=== PATIENT | female | born 1985 | race Caucasian/White ===

== ENCOUNTER 2016-10-03 05:54 | Day surgery (SDC) | payer OTHER ==
[~2016-10-03] VITALS: Ht 157.5 cm; Wt 88.5 kg
[~2016-10-03 05:54] MED LIST: FLEXERIL10 MG PO; MOBIC7.5 MG PO; NAPROSYN500 MG PO; NOHOMEMEDS; NORCO 5/3251 TABLET PO; PRILOSEC10 MG PO; TRAMADOL HCL50 MG PO
[2016-10-03 06:35] VITALS: BP 137/60
[2016-10-03 11:03] VITALS: BP 118/66
[2016-10-03 11:18] LABS: INTERNAL CONTROL VALID? YES
[2016-10-03 13:30] VITALS: BP 125/67
== END 2016-10-03 13:30 | disposition home or self-care (01) ==
LOC: SDC 05:54
PROVIDERS: Neurological Surgery
PROC: 00NY0ZZ Release Lumbar Spinal Cord, Open Approach (ICD-10-PCS; principal; 2016-10-03)
DX: M51.17 Intervertebral disc disorders with radiculopathy, lumbosacral region (principal); M51.06 Intervertebral disc disorders with myelopathy, lumbar region; Z91.040 Latex allergy status; Z68.34 Body mass index [BMI] 34.0-34.9, adult
CPT/HCPCS: 72020; 76000; 84703; J0131; J0330; J0690; J1100; J1170; J1885; J2250; J2405; J3010; S0020

== ENCOUNTER 2016-12-21 19:45 | Emergency (ER) | payer OTHER ==
[~2016-12-21] VITALS: Ht 157.5 cm; Wt 87.6 kg
[2016-12-21 23:45] VITALS: BP 126/89
== END 2016-12-21 23:44 | disposition home or self-care (01) ==
LOC: EXP 19:45 → EME 19:45 → EXP 23:44
DX: S06.0X0A Concussion without loss of consciousness, initial encounter (principal); R51 Headache; W10.9XXA Fall (on) (from) unspecified stairs and steps, initial encounter; Z91.040 Latex allergy status
CPT/HCPCS: 70450; 72125; 99281; 99284

== ENCOUNTER 2017-04-12 13:38 | Emergency (ER) | payer OTHER ==
[~2017-04-12] VITALS: Ht 157.5 cm; Wt 92.8 kg
[2017-04-12] MEDS ORDERED: NAPROSYN500 MG PO (15:44)
[2017-04-12] MEDS ORDERED: FLEXERIL10 MG PO (15:44)
[2017-04-12] MEDS ORDERED: LIDODERM 5% P1 PATCH TD (15:44)
[2017-04-12 16:01] VITALS: BP 142/92
== END 2017-04-12 16:01 | disposition home or self-care (01) ==
LOC: EME 13:38
DX: M54.41 Lumbago with sciatica, right side (principal); Z91.040 Latex allergy status
CPT/HCPCS: 72100; 99281; 99283

== ENCOUNTER 2017-07-19 11:03 | Emergency (ER) | payer OTHER ==
[~2017-07-19] VITALS: Ht 157.5 cm; Wt 94.6 kg
[~2017-07-19 11:03] MED LIST changes: +LIDODERM 5% P1 PATCH TD
[2017-07-19] MEDS ORDERED: TRAZODONE HCL50 MG PO (12:04)
[2017-07-19] MEDS ORDERED: STRATTERA40 MG PO (12:04)
[2017-07-19] MEDS ORDERED: IBUPROFEN800 MG PO (12:04)
[2017-07-19] MEDS ORDERED: MOTRIN800 MG PO (14:02)
[2017-07-19] MEDS ORDERED: FLEXERIL10 MG PO (14:02)
[2017-07-19 14:20] VITALS: BP 120/78
== END 2017-07-19 14:23 | disposition home or self-care (01) ==
LOC: EME 11:03
DX: S80.12XA Contusion of left lower leg, initial encounter (principal); M62.838 Other muscle spasm; M79.605 Pain in left leg; X58.XXXA Exposure to other specified factors, initial encounter; Z91.040 Latex allergy status
CPT/HCPCS: 93971; 99281; 99284

== ENCOUNTER 2017-10-15 15:33 | Emergency (ER) | payer OTHER ==
[~2017-10-15] VITALS: Ht 157.5 cm; Wt 93.4 kg
[~2017-10-15 15:33] MED LIST changes: +IBUPROFEN800 MG PO; +MOTRIN800 MG PO; +STRATTERA40 MG PO; +TRAZODONE HCL50 MG PO
[2017-10-15 15:40] VITALS: BP 128/90
[2017-10-15] MEDS ORDERED: MOTRIN800 MG PO (17:12)
[2017-10-15] MEDS ORDERED: ULTRAM50 MG PO (17:12)
== END 2017-10-15 17:51 | disposition home or self-care (01) ==
LOC: EME 15:33
DX: M25.562 Pain in left knee (principal); Z91.040 Latex allergy status
CPT/HCPCS: 99281; 99283